=== PATIENT | male | born 1940 | race Caucasian/White ===

== ENCOUNTER 2024-09-14 13:41 | Emergency (ER) | payer MEDICARE, BC, SELFPAY ==
[2024-09-14 13:47] VITALS: BP 131/78; PULSE 80; RESP 20; TEMP 36.2; O2SAT 95; BMI 30.8
--- NOTE | 2024-09-14 14:59 | ED.GENADULT ---
HPI - General Adult General Chief complaint: Eye Problems Stated complaint: swelling on right eye Time Seen by Provider: 09/14/24 13:50 History of Present Illness HPI narrative: Pt here for redness and swelling on his R lower eyelid . Began a few days ago. Reports it is actually improving, but pt's son wanted him checked out. No vision changes. Denies pain. 83-year-old man presenting to the emergency department with concern of swelling right lower eyelid. Began a few days ago in might be getting a little bit better. He had thought he had gotten something in there. Was recommended by family to be checked out. Is not having significant pain. No trauma otherwise noted. Not affecting his vision. Related Data Home Medications ?Medication ?Instructions ?Recorded ?Confirmed amlodipine 5 mg tablet 5 mg PO DAILY 09/14/24 09/14/24 apixaban 5 mg tablet (Eliquis) 5 mg PO BID 09/14/24 09/14/24 atorvastatin 40 mg tablet 40 mg PO DAILY 09/14/24 09/14/24 lisinopril 20 mg tablet 20 mg PO DAILY 09/14/24 09/14/24 metoprolol succinate 50 mg 50 mg PO DAILY 09/14/24 09/14/24 tablet,extended release 24 hr Allergies Allergy/AdvReac Type Severity Reaction Status Date / Time No Known Drug Allergies Allergy Verified 09/14/24 13:51 Review of Systems Status of ROS: Reports: 6 or more systems reviewed and unremarkable except as noted in History and below [facility] Social History Smoking Status: Never smoker How often do you have a drink containing alcohol: 2-3 times a week How many standard drinks containing alcohol do you have on a typical day: 1 or 2 How often do you have six or more drinks on one occasion: Never AUDIT-C Alcohol total score: 3 Non-prescribed substance use: denies use Exam Narrative: Exam Narrative: Pleasant. NAD. Skin is warm and dry. Extraocular movements are full. Pupils are equal and briskly reactive. There is no marked surrounding erythema to his eyes or swelling. There is however at the right lower lid visible swelling somewhat medially. This shows what looks like a purulent follicle and then with eversion of the lid a 0.5 cm white firm swelling. I do not see evidence of injury on cornea or sclera otherwise. Maybe faint scleral injection on the right. Const: Vital Signs, click to edit/add: Vital Signs - 24 hr 09/14/24 13:47 Temperature 97.2 F L Pulse Rate [Pulse Oximeter] 80 Respiratory Rate 20 Blood Pressure [Ri ght Upper Arm] 131/78 Pulse Oximetry 95 Oxygen Delivery Me thod Room Air Documenting provider has reviewed patient's vital signs: yes Course Vital Signs Vital signs: Initial Vital Signs Temperature 97.2 F L 09/14/24 13:47 Temperature Source Temporal Artery Scan 09/14/24 13:47 Pulse Rate 80 09/14/24 13:47 Pulse Rhythm Regular 09/14/24 13:47 Respiratory Rate 20 09/14/24 13:47 Blood Pressure 131/78 09/14/24 13:47 Blood Pressure Mean 95 09/14/24 13:47 Blood Pressure Position Sitting 09/14/24 13:47 Pulse Oximetry 95 09/14/24 13:47 Oxygen Delivery Method Room Air 09/14/24 13:47 Vital Signs Temperature 97.2 F L 09/14/24 13:47 Pulse Rate 80 09/14/24 13:47 Respiratory Rate 20 09/14/24 13:47 Blood Pressure 131/78 09/14/24 13:47 Pulse Oximetry 95 09/14/24 13:47 Oxygen Delivery Method Room Air 09/14/24 13:47 Temperature 97.2 F L 09/14/24 13:47 Pulse Rate 80 09/14/24 13:47 Respiratory Rate 20 09/14/24 13:47 Blood Pressure 131/78 09/14/24 13:47 Pulse Oximetry 95 09/14/24 13:47 Oxygen Delivery Method Room Air 09/14/24 13:47 Medications Administered Medications: Discontinued Medications Generic Name Dose Route Start Last Admin Trade Name Freq PRN Reason Stop Dose Admin Erythromycin 1 applic 09/14/24 15:41 09/14/24 15:43 Erythromycin Ophth Oint 3.5 Gm EYE-RIGHT 09/14/24 15:42 1 applic ONCE ONE Administration Medical Decision Making MDM Narrative Medical decision making narrative: This is a hordeolum in this case I think it is coming from the in hair follicle so an external hordeolum After discussion of options for treatment, we are able to supply with erythromycin ointment from our eye tray here in the emergency department. See patient discharge plan for further discussion Yes this would also be known as a stye. Apply warm moist compresses a couple of times daily over this next week. Once or twice daily you might wash the eye area with baby/no tears shampoo. As dispensed from ER stock, place last dosing of the day of erythromycin eye ointment before bed. Be seen in ophthalmology clinic if not resolved in 2-3 weeks. Discharge Plan Discharge Clinical Impression: External hordeolum Patient Disposition: Home, Self-Care Condition: Improved Additional Instructions: Yes this would also be known as a stye. Apply warm moist compresses a couple of times daily over this next week. Once or twice daily you might wash the eye area with baby/no tears shampoo. As dispensed from ER stock, place last dosing of the day of erythromycin eye ointment before bed. Be seen in ophthalmology clinic if not resolved in 2-3 weeks. Prescriptions: No Action atorvastatin 40 mg tablet 40 mg PO DAILY metoprolol succinate 50 mg tablet extended release 24 hr 50 mg PO DAILY lisinopril 20 mg tablet 20 mg PO DAILY amlodipine 5 mg tablet 5 mg PO DAILY Eliquis 5 mg tablet 5 mg PO BID Stand Alone Forms: [employer] Info Instructions
[2024-09-14] MEDS: ERYTHROMYCIN OPHTH OINT 3.5 GM 1 APPLIC EYE-RIGHT (15:43)
== END 2024-09-14 15:39 | disposition home or self-care (01) ==
PROVIDERS: Emergency Provider Family Medicine
DX: H00.012 Hordeolum externum right lower eyelid (principal)
CPT/HCPCS: 99283; 99284; A9270